=== PATIENT | male | born 1990 | race Caucasian/White ===

== ENCOUNTER 2017-09-04 21:44 | Emergency (ER) | payer BC ==
[~2017-09-04] VITALS: Ht 177.8 cm; Wt 84.1 kg
[2017-09-04 21:47] VITALS: TEMP 36.7; Ht 177.8 cm; Wt 84.1 kg
--- NOTE | 2017-09-04 22:39 | DIAGNOSTIC IMAGING REPORT ---
LEFT FOOT 3 VIEWS CLINICAL HISTORY: Left foot injury. FINDINGS: 3 views of the left foot are obtained. No prior studies are available for comparison at the time of dictation. The skeletal structures are well mineralized. There is a tiny avulsion fracture identified along the dorsal aspect of the tarsal bones, likely arising from the navicular. No additional fracture is seen. The joint spaces of the foot are well-maintained. Dorsal soft tissue edema is noted. IMPRESSION: There is a tiny avulsion fracture along the dorsal aspect of the tarsal bones, likely arising from the navicular. Electronically signed by: Colton Wright M.D. 09/04/2017 10:38 PM Dictated Date/Time: 09/04/2017 10:37 PM
--- NOTE | 2017-09-04 23:19 | EMERGENCY ROOM VISIT NOTE ---
History First contact with patient: 22:25 Chief Complaint: FOOT PAIN Stated Complaint: TRIPPED DOWN STAIRS,FOOT PAIN History of Present Illness The patient is a 27 year old male who presents to the Emergency Room with complaints of an injury to his left foot. The patient states that he was walking down stairs when he tripped and landed awkwardly onto the left foot, causing pain over the top of the foot. The pain is dull. He rates his discomfort a 5/10 and states the pain is worse when he is walking on the foot. He has not applied ice or taken any medications for the pain. He denies any previous injuries to this foot. He denies any other injuries. He denies numbness or weakness. Review of Systems A complete 6 point review of systems was reviewed with the patient with pertinent positives and negatives as per history of present illness. All else were negative. Past Medical/Surgical History Medical Problems: (1) No significant active problems Social History Smoking Status: Never Smoker Occupation Status: [employer] student Physical Exam Vital Signs Date Time Temp Pulse Resp B/P (MAP) Pulse Ox O2 Delivery O2 Flow Rate FiO2 09/04/17 23:40 97 107/69 97 09/04/17 21:47 36.7 73 20 135/82 98 Room Air Physical Exam VITALS: Vitals are noted on the nurse's note and reviewed by myself. Vital signs stable. GENERAL: This is a 27-year-old male, in no acute distress, nondiaphoretic, well- developed well-nourished. SKIN: The skin was without rashes, erythema, edema, or bruising. MUSCULOSKELETAL: There is mild tenderness to palpation over the dorsal aspect of the left midfoot. Full range of motion of the ankle and all toes. NEURO: Patient was alert and oriented to person place and time. Medical Decision & Procedures ER Provider Diagnostic Interpretation: LEFT FOOT 3 VIEWS CLINICAL HISTORY: Left foot injury. FINDINGS: 3 views of the left foot are obtained. No prior studies are available for comparison at the time of dictation. The skeletal structures are well mineralized. There is a tiny avulsion fracture identified along the dorsal aspect of the tarsal bones, likely arising from the navicular. No additional fracture is seen. The joint spaces of the foot are well-maintained. Dorsal soft tissue edema is noted. IMPRESSION: There is a tiny avulsion fracture along the dorsal aspect of the tarsal bones, likely arising from the navicular. Medical Decision Differential diagnosis includes fracture, contusion, sprain, dislocation, among others. The patient was evaluated as above. X-ray of the left foot was obtained and read by radiology and shows a tiny avulsion fracture of the navicular bone of the left foot. Patient was placed in a postoperative shoe and given crutches. He was instructed to follow-up with orthopedics this week for recheck. Conservative measures were discussed with the patient. He verbalized understanding of my assessment and treatment plan and was discharged home in good condition. Medication Reconcilliation Current Medication List: was personally reviewed by me Blood Pressure Screening Patient's blood pressure: Normal blood pressure Impression Primary Impression: Avulsion fracture of navicular bone of foot Departure Information Dispostion Home / Self-Care Condition GOOD Referrals No Doctor, Assigned (PCP) Iron Peitt M.D. Patient Instructions My [facility] Additional Instructions You have been treated in the Emergency Department for a foot injury. For pain control, you can use the following [id number] medicines (if >12 yo): - Regular strength (325mg/tab) Tylenol (acetaminophen) 2 tabs every 4-6 hours as needed. Do not exceed 12 tablets in a 24 hour period. Avoid taking more than 4 grams (4000 mg) of Tylenol per day. This includes any other sources of acetaminophen you may take on a regular basis. - Regular strength (200 mg/tab) Advil (ibuprofen) 1-2 tabs every 4-6 hours as needed. Do not exceed a dose of 3200 mg per day. If this is a recent injury (<24 hrs), ice can be applied to the area of pain for the first 3 days to help decrease pain and inflammation. You have been provided the number for an Orthopaedic Surgeon. You should call this number as soon as possible to establish a follow-up visit from today's Emergency Department visit. Where the postoperative shoe and use the crutches to keep weight off the foot until follow-up with orthopedics. Return to the Emergency Department if your current symptoms worsen despite treatment course outlined above, or if you develop any of the following symptoms : intractable pain despite aforementioned treatment course or new onset of numbness or tingling of the foot. Problem Qualifiers Primary Impression: Avulsion fracture of navicular bone of foot Encounter type: initial encounter Fracture type: closed Laterality: left Qualified Codes: S92.252A - Displaced fracture of navicular [scaphoid] of left foot, initial encounter for closed fracture
[2017-09-04 23:40] VITALS: BP 107/69; PULSE 97; O2SAT 97
== END 2017-09-04 23:40 | disposition home or self-care (01) ==
LOC: C.EDB 21:45 → C.EDD 23:40
DX: S92.252A Displaced fracture of navicular [scaphoid] of left foot, initial encounter for closed fracture (principal); W10.9XXA Fall (on) (from) unspecified stairs and steps, initial encounter